=== PATIENT | male | born 1950 | race Hispanic/Latino ===

== ENCOUNTER 2021-08-27 13:59 | Emergency (ER) | payer MEDICARE, SELFPAY ==
--- NOTE | ~2021-08-27 | XR_ITS ---
EXAMINATION: XR abdomen/kub 1V DATE: 08/27/2021 16:18 INDICATION: Left flank pain. Hematuria. TECHNIQUE: A supine view of the abdomen was obtained. COMPARISON: None. FINDINGS: There are no dilated loops of bowel. Calcifications overlying the pelvis are likely phlebol iths. IMPRESSION: 1. No visible urolithiasis. Reviewed, dictated and finalized at location [facility] IMPRESSION: 1. No visible urolithiasis.
[2021-08-27 14:48] VITALS: BP 130/92; PULSE 81; RESP 16; TEMP 36.2; O2SAT 99
--- NOTE | 2021-08-27 15:08 | ED.BACK ---
HPI - Back Pain/Injury General Chief Complaint: Back Pain/Injury Stated Complaint: lower back pain Time Seen by Provider: 08/27/21 15:12 Source: patient and RN notes reviewed Mode of arrival: ambulatory Limitations: no limitations History of Present Illness HPI Narrative: 71-year-old male presents with concern for left flank pain, nausea with pain. He reports a history of kidney stones which he has passed on its own after taking Flomax. He denies ever having intervention for kidney stones. He reports flank pain for 3 days, one episode of vomiting with an episode of pain. He denies any constipation or diarrhea. Denies abdominal pain. MD elicited complaint: back pain Related Data Allergies Allergy/AdvReac Type Severity Reaction Status Date / Time No Known Allergies Allergy Verified 08/27/21 15:33 Review of Systems Review of Systems: CONSTITUTIONAL: Denies malaise, chills, sweats, or fever. CARDIOVASCULAR: Denies chest pain, palpitations, or edema. RESPIRATORY: Denies cough or dyspnea. GASTROINTESTINAL: Denies abdominal pain, diarrhea, loss of bowel function. Reports nausea and one episode of vomiting GENITOURINARY: Reports occasional dysuria, hematuria. Denies frequency, loss of bladder function. Reports left flank pain SKIN: Denies rash or itching. MUSCULOSKELETAL: Reports left flank pain NEUROLOGIC: Denies numbness, weakness, or headache. All systems reviewed & are unremarkable except as noted in HPI and below PMFSH Comments At time of signature, agree with nursing past medical, surgical, social and family history. There is no relevant family history pertinent to the presenting complaint Exam Narrative: GENERAL: Well-appearing, well-nourished, and in no acute distress. HEAD: Normocephalic. EYES: PERRLA, conjunctivae clear. NECK: Supple. No lymphadenopathy CHEST: Clear to auscultation. No respiratory distress. HEART: Regular rate and rhythm. ABDOMEN: Soft, nontender upon palpation, nondistended, normal active bowel sounds, no palpable or pulsatile masses, no guarding. Left CVA tenderness SKIN: Warm, dry, no rash. NEURO: Alert and oriented x3. PSYCH: Normal mood and affect Course Course Emergency Course: Patient is aware of diagnosis, understands and agrees to treatment plan. Anticipatory guidance given. Patient agrees to follow-up as directed and is aware of reasons to seek care at the emergency department. Portions of this record may have been created with voice recognition software Level of Care: Express Care Visit Vital Signs Vital signs: Vital Signs Temperature 97.1 F L 08/27/21 14:48 Pulse Rate 81 08/27/21 14:48 Respiratory Rate 16 08/27/21 14:48 Blood Pressure 130/92 H 08/27/21 14:48 Pulse Oximetry 99 08/27/21 14:48 Temperature 97.1 F L 08/27/21 14:48 Pulse Rate 81 08/27/21 14:48 Respiratory Rate 16 08/27/21 14:48 Blood Pressure 130/92 H 08/27/21 14:48 Pulse Oximetry 99 08/27/21 14:48 Reviewed. MDM - Back Pain/Injury MDM Narrative Medical decision making narrative: No risk factors or findings concerning for epidural abscess, diskitis, vertebral osteomyelitis, cord compression, cauda equina, vertebral fracture or bone malignancy, AAA, or pyelonephritis. Patient instructed to consider further imaging and workup through their primary care physician as an outpatient if symptoms persist. Imaging Data My impression: Images reviewed, interpreted by radiologist, agree, see report. Radiologist's impression: EXAMINATION: XR abdomen/kub 1V DATE: 08/27/2021 16:18 INDICATION: Left flank pain. Hematuria. TECHNIQUE: A supine view of the abdomen was obtained. COMPARISON: None. FINDINGS: There are no dilated loops of bowel. Calcifications overlying the pelvis are likely phleboliths. IMPRESSION: 1. No visible urolithiasis. Critical Care Time Critical Care Time Critical Care Time: No Discharge Plan Discharge Clinical Impression: Flank pain, History of kidney s
== END 2021-08-27 16:50 | disposition home or self-care (01) ==
PROVIDERS: Emergency Provider Nurse Practitioner
DX: R10.9 Unspecified abdominal pain (principal); Z87.442 Personal history of urinary calculi
CPT/HCPCS: 74018; 81003; 99213; G0463